=== PATIENT | female | born 1990 | race Hispanic/Latino ===

== ENCOUNTER 2022-07-26 23:33 | Emergency (ER) | payer BC ==
--- OUTSIDE RECORDS SUMMARY | 2022-07-26 23:36 | XMS REPORT | Continuity of Care Document ---
:1990 Author Organization [facility] t Address [address] [place] [address] Care Team Providers Name Role Phone CRISTA YOUNG Primary Care Physician Unavailable RADIOLOGY Attending Clinician Unavailable Alek Anguiano DO Attending Clinician Pob1, Acute Care Clinic Attending Clinician Unavailable Crista Luna Attending Clinician CRISTA YOUNG Attending Clinician Unavailable Care, Provider 14 Adult & Pedi Urgent Attending Clinician Un available Stephany Walker MD Attending Clinician PERNELL FLOWERS Attending Clinician Unavailable Pernell Queen Attending Clinician Doctor Unassigned, [place] Attending Clinician Unavailable Kelly Dobbins NP Attending Clinician CRISTA YOUNG Admitting Clinician Unavailable PERNELL FLOWERS Admitting Clinician Unavailable Payers Payer Name Policy Type Policy Number Effective Date Expiration Date S [facility] - [id number] 2020 OUT OF STATE 00:00:00 COVID19 HRSA [id number] 2019 UNINSURED 00:00:00 Problems Condition Condition Condition Status Onset Resolution Last Treating Co mments Source Name Details Category Date Date Treatment Clinician Date No known No known Disease Unive rs active active ity of problems problems [facility] Allergies, Adverse Reactions, Alerts Allergy Allergy Status Severity Reaction(s) Onset Inactive Treating Comm ents Source Name Type Date Date Clinician NO KNOWN Drug Active Univers ALLERGIE Class ity of S [facility] Social History Social Habit Start Date Stop Date Quantity Comments Source Sex Assigned At [birth year] [facility] 00:00:00 00:00:00 Medical Branch Smoking Status Start Date Stop Date Source Unknown if ever smoked [facility] Medications Ordered Filled Start Stop Current Ordering Indication Dosage Frequency Signature Comments Components Source Medication Medication Date Date Medication? Clinician (SIG) Name Name ozzie 2019-2019- No [id number] 5mL Take 5 mL Univers mine-pseudo 11-04 by mouth 4 i ty of ephedrine-D 00:00: 04:59 (four) Berry as M (BROMFED 00 :00 times Medical DM) 2-30-10 daily as Bran ch mg/5 mL needed for syrup Cold symptoms or Cough for up to 10 days. bromphenira 2019-2019- No [id number] 5mL Take 5 mL Univers mine-pseudo 11-04 by mouth 4 i ty of ephedrine-D 00:00: 04:59 (four) Berry as M (BROMFED 00 :00 times Medical DM) 2-30-10 daily as Bran ch mg/5 mL needed for syrup Cold symptoms or Cough for up to 10 days. bromphenira 2019-2019- No [id number] 5mL Take 5 mL Univers mine-pseudo 11-0404 by mouth 4 i ty of ephedrine-D 00:00: 04:59 (four) Berry as M (BROMFED 00 :00 times Medical DM) 2-30-10 daily as Bran ch mg/5 mL needed for syrup Cold symptoms or Cough for up to 10 days. bromphenira 2019-2019- No [id number] 5mL Take 5 mL Univers mine-pseudo 11-0404 by mouth 4 i ty of ephedrine-D 00:00: 04:59 (four) Berry as M (BROMFED 00 :00 times Medical DM) 2-30-10 daily as Bran ch mg/5 mL needed for syrup Cold symptoms or Cough for up to 10 days. ibuprofen 2019- No 800mg 800 mg, Uni vers (IBU) 11-02 Oral, ity of tablet 800 22:00: 21:00 ONCE, 1 [place] as mg 00 :00 dose, [facility] 11/03/19 at Branch 1700, CONNIE methocarbam 2019-0 2019- No 1500mg 1,500 mg, Univers ol 03-25 Oral, ONCE ity of (ROBAXIN) 22:00: 21:06 NOW, 1 [place] tablet 00 :00 dose, Mon Medical 1,500 mg 03/25/19 at [facility] h 1700, Routine ketorolac 2018- 2019- No 60mg 60 mg, Unive rs (TORADOL) 03-25 Intramuscu ity of injection 22:00: 21:06 lar, ONCE, [place] 60 mg 00 :00 1 dose, Medical Mon Branch 03/25/19 at 1700, CONNIE
Fa culty member approving Restricted medication : KELLY DOBBINS traMADOL 2018-0 Yes 50mg Take 1 Univers (ULTRAM) 50 7-22 tablet by ity of mg tablet 00:00: mouth [place] 00 every 6 Medical (six) Branch hours as needed for Pain (scale 4-6). traMADOL 2018-0 Yes 50mg Take 1 Univers (ULTRAM) 50 7-22 tablet by ity of mg tablet 00:00: mouth [place] 00 every 6 Medical (six) Branch hours as needed for Pain (scale 4-6). traMADOL 2018-0 Yes 50mg Take 1 Univers (ULTRAM) 50 7-22 tablet by ity of mg tablet 00:00: mouth [place] 00 every 6 Medical (six) Branch hours as needed for Pain (scale 4-6). traMADOL 2018-0 Yes 50mg Take 1 Univers (ULTRAM) 50 7-22 tablet by ity of mg tablet 00:00: mouth [place] 00 every 6 Medical (six) Branch hours as needed for Pain (scale 4-6). traMADOL 2018-0 Yes 50mg Take 1 Univers (ULTRAM) 50 7-22 tablet by ity of mg tablet 00:00: mouth [place] 00 every 6 Medical (six) Branch hours as needed for Pain (scale 4-6). traMADOL 2018-0 Yes 50mg Take 1 Univers (ULTRAM) 50 7-22 tablet by ity of mg tablet 00:00: mouth [place] 00 every 6 Medical (six) Branch hours as needed for Pain (scale 4-6). traMADOL 2018-0 Yes 50mg Take 1 Univers (ULTRAM) 50 7-22 tablet by ity of mg tablet 00:00: mouth [place] 00 every 6 Medical (six) Branch hours as needed for Pain (scale 4-6). traMADOL 2018-0 Yes 50mg Take 1 Univers (ULTRAM) 50 7-22 tablet by ity of mg tablet 00:00: mouth [place] 00 every 6 Medical (six) Branch hours as needed for Pain (scale 4-6). traMADOL 2018-0 Yes 50mg Take 1 Univers (ULTRAM) 50 7-22 tablet by ity of mg tablet 00:00: mouth [place] 00 every 6 Medical (six) Branch hours as needed for Pain (scale 4-6). traMADOL 2018-0 Yes 50mg Take 1 Univers (ULTRAM) 50 7-22 tablet by ity of mg tablet 00:00: mouth [place] 00 every 6 Medical (six) Branch hours as needed for Pain (scale 4-6). ondansetron 2018-0 Yes 4mg Take 1 Univ ers 4 mg 5-13 tablet by ity of disintegrat 00:00: mouth [place] ing tablet 00 every 4 Medica l (four) Branch hours as needed for Nausea and Vomiting (N/V). famotidine 2018-0 Yes 20mg Take 1 Unive rs 20 mg 5-13 tablet by ity of tablet 00:00: mouth 2 [place] 00 (two) Medical times Branch daily. sucralfate 2018-0 Yes 1g Take 1 Unive rs 1 gram 5-13 tablet by ity of tablet 00:00: mouth [place] 00 before Medical meals and Branch at bedtime. ondansetron 2018-0 Yes 4mg Take 1 Univ ers 4 mg 5-13 tablet by ity of disintegrat 00:00: mouth [place] ing tablet 00 every 4 Medica l (four) Branch hours as needed for Nausea and Vomiting (N/V). famotidine 2018-0 Yes 20mg Take 1 Unive rs 20 mg 5-13 tablet by ity of tablet 00:00: mouth 2 [place] 00 (two) Medical times Branch daily. sucralfate 2018-0 Yes 1g Take 1 Unive rs 1 gram 5-13 tablet by ity of tablet 00:00: mouth [place] 00 before Medical meals and Branch at bedtime. ondansetron 2018-0 Yes 4mg Take 1 Univ ers 4 mg 5-13 tablet by ity of disintegrat 00:00: mouth [place] ing tablet 00 every 4 Medica l (four) Branch hours as needed for Nausea and Vomiting (N/V). famotidine 2018-0 Yes 20mg Take 1 Unive rs 20 mg 5-13 tablet by ity of tablet 00:00: mouth 2 [place] 00 (two) Medical times Branch daily. sucralfate 2018-0 Yes 1g Take 1 Unive rs 1 gram 5-13 tablet by ity of tablet 00:00: mouth [place] 00 before Medical meals and Branch at bedtime. ondansetron 2018-0 Yes 4mg Take 1 Univ ers 4 mg 5-13 tablet by ity of disintegrat 00:00: mouth [place] ing tablet 00 every 4 Medica l (four) Branch hours as needed for Nausea and Vomiting (N/V). famotidine 2018-0 Yes 20mg Take 1 Unive rs 20 mg 5-13 tablet by ity of tablet 00:00: mouth 2 [place] 00 (two) Medical times Branch daily. sucralfate 2018-0 Yes 1g Take 1 Unive rs 1 gram 5-13 tablet by ity of tablet 00:00: mouth [place] 00 before Medical meals and Branch at bedtime. ondansetron 2018-0 Yes 4mg Take 1 Univ ers 4 mg 5-13 tablet by ity of disintegrat 00:00: mouth [place] ing tablet 00 every 4 Medica l (four) Branch hours as needed for Nausea and Vomiting (N/V). famotidine 2018-0 Yes 20mg Take 1 Unive rs 20 mg 5-13 tablet by ity of tablet 00:00: mouth 2 [place] 00 (two) Medical times Branch daily. sucralfate 2018-0 Yes 1g Take 1 Unive rs 1 gram 5-13 tablet by ity of tablet 00:00: mouth [place] 00 before Medical meals and Branch at bedtime. ondansetron 2018-0 Yes 4mg Take 1 Univ ers 4 mg 5-13 tablet by ity of disintegrat 00:00: mouth [place] ing tablet 00 every 4 Medica l (four) Branch hours as needed for Nausea and Vomiting (N/V). famotidine 2018-0 Yes 20mg Take 1 Unive rs 20 mg 5-13 tablet by ity of tablet 00:00: mouth 2 [place] 00 (two) Medical times Branch daily. sucralfate 2018-0 Yes 1g Take 1 Unive rs 1 gram 5-13 tablet by ity of tablet 00:00: mouth [place] 00 before Medical meals and Branch at bedtime. ondansetron 2018-0 Yes 4mg Take 1 Univ ers 4 mg 5-13 tablet by ity of disintegrat 00:00: mouth [place] ing tablet 00 every 4 Medica l (four) Branch hours as needed for Nausea and Vomiting (N/V). famotidine 2018-0 Yes 20mg Take 1 Unive rs 20 mg 5-13 tablet by ity of tablet 00:00: mouth 2 [place] 00 (two) Medical times Branch daily. ondansetron 2018-0 Yes 4mg Take 1 Univ ers 4 mg 5-13 tablet by ity of disintegrat 00:00: mouth [place] ing tablet 00 every 4 Medica l (four) Branch hours as needed for Nausea and Vomiting (N/V). sucralfate 2018-0 Yes 1g Take 1 Unive rs 1 gram 5-13 tablet by ity of tablet 00:00: mouth [place] 00 before Medical meals and Branch at bedtime. famotidine 2018-0 Yes 20mg Take 1 Unive rs 20 mg 5-13 tablet by ity of tablet 00:00: mouth 2 [place] 00 (two) Medical times Branch daily. sucralfate 2018-0 Yes 1g Take 1 Unive rs 1 gram 5-13 tablet by ity of tablet 00:00: mouth [place] 00 before Medical meals and Branch at bedtime. ondansetron 2018-0 Yes 4mg Take 1 Univ ers 4 mg 5-13 tablet by ity of disintegrat 00:00: mouth [place] ing tablet 00 every 4 Medica l (four) Branch hours as needed for Nausea and Vomiting (N/V). famotidine 2018-0 Yes 20mg Take 1 Unive rs 20 mg 5-13 tablet by ity of tablet 00:00: mouth 2 [place] 00 (two) Medical times Branch daily. sucralfate 2018-0 Yes 1g Take 1 Unive rs 1 gram 5-13 tablet by ity of tablet 00:00: mouth [place] 00 before Medical meals and Branch at bedtime. ondansetron 2018-0 Yes 4mg Take 1 Univ ers 4 mg 5-13 tablet by ity of disintegrat 00:00: mouth [place] ing tablet 00 every 4 Medica l (four) Branch hours as needed for Nausea and Vomiting (N/V). famotidine 2018-0 Yes 20mg Take 1 Unive rs 20 mg 5-13 tablet by ity of tablet 00:00: mouth 2 [place] 00 (two) Medical times Branch daily. sucralfate 2018-0 Yes 1g Take 1 Unive rs 1 gram 5-13 tablet by ity of tablet 00:00: mouth [place] 00 before Medical meals and Branch at bedtime. proMETHazin 2016-08 Yes 25mg Take 1 Univ ers e 25 mg 0-30 tablet by ity of tablet 00:00: mouth [place] 00 every 6 Medical (six) Branch hours as needed for Nausea and Vomiting (N/V). proMETHazin 2016-08 Yes 25mg Take 1 Univ ers e 25 mg 0-30 tablet by ity of tablet 00:00: mouth [place] 00 every 6 Medical (six) Branch hours as needed for Nausea and Vomiting (N/V). proMETHazin 2016-08 Yes 25mg Take 1 Univ ers e 25 mg 0-30 tablet by ity of tablet 00:00: mouth [place] 00 every 6 Medical (six) Branch hours as needed for Nausea and Vomiting (N/V). proMETHazin 2016-08 Yes 25mg Take 1 Univ ers e 25 mg 0-30 tablet by ity of tablet 00:00: mouth [place] 00 every 6 Medical (six) Branch hours as needed for Nausea and Vomiting (N/V). proMETHazin 2016-08 Yes 25mg Take 1 Univ ers e 25 mg 0-30 tablet by ity of tablet 00:00: mouth [place] 00 every 6 Medical (six) Branch hours as needed for Nausea and Vomiting (N/V). proMETHazin 2016-08 Yes 25mg Take 1 Univ ers e 25 mg 0-30 tablet by ity of tablet 00:00: mouth [place] 00 every 6 Medical (six) Branch hours as needed for Nausea and Vomiting (N/V). proMETHazin 2016-08 Yes 25mg Take 1 Univ ers e 25 mg 0-30 tablet by ity of tablet 00:00: mouth [place] 00 every 6 Medical (six) Branch hours as needed for Nausea and Vomiting (N/V). proMETHazin 2016- Yes 25mg Take 1 Univ ers e 25 mg 0-30 tablet by ity of tablet 00:00: mouth [place] 00 every 6 Medical (six) Branch hours as needed for Nausea and Vomiting (N/V). proMETHazin 2016- Yes 25mg Take 1 Univ ers e 25 mg 0-30 tablet by ity of tablet 00:00: mouth [place] 00 every 6 Medical (six) Branch hours as needed for Nausea and Vomiting (N/V). proMETHazin 2017-1 Yes 25mg Take 1 Univ ers e 25 mg 0-30 tablet by ity of tablet 00:00: mouth [place] 00 every 6 Medical (six) Branch hours as needed for Nausea and Vomiting (N/V). Vital Signs Vital Name Observation Time Observation Value Comments Source Heart rate 2019-11-05 17:17:00 86 /min Universi ty [facility] Body temperature 2019-11-05 17:17:00 36.67 Guillermina Univ ersity [facility] Respiratory rate 2019-11-05 17:17:00 20 /min Univ ersity [facility] Body weight 2019-11-05 17:17:00 92.987 kg Universi ty [facility] BMI 2019-11-05 17:17:00 35.19 kg/m2 Universi ty [facility] Oxygen saturation in 2019-11-05 17:17:00 99 /min University of Arterial blood by [facility] Pulse oximetry Branch Systolic blood 2019-11-05 17:17:00 139 mm[Hg] Univer sity of pressure [facility] Diastolic blood 2019-11-05 17:17:00 83 mm[Hg] Unive rsity of pressure [facility] Systolic blood 2019-11-03 21:00:00 108 mm[Hg] Univer sity of pressure [facility] Diastolic blood 2019-11-03 21:00:00 79 mm[Hg] Unive rsity of [facility] Heart rate 2019-11-03 21:00:00 96 /min Universi ty [facility] Respiratory rate 2019-11-03 21:00:00 22 /min Univ ersity [facility] Oxygen saturation in 2019-11-03 21:00:00 98 /min University of Arterial blood by [facility] Pulse oximetry Branch Body temperature 2019-11-03 20:32:00 37.11 Guillermina Univ ersity [facility] Body weight 2019-11-03 20:32:00 92.987 kg Universi ty [facility] BMI 2019-11-03 20:32:00 35.19 kg/m2 Universi ty [facility] Systolic blood 2019-03-25 22:00:00 102 mm[Hg] Univer sity of [facility] Diastolic blood 2019-03-25 22:00:00 74 mm[Hg] Unive rsity of pressure [facility] Heart rate 2019-03-25 22:00:00 72 /min [facility] Respiratory rate 2019-03-25 22:00:00 18 /min [facility] Oxygen saturation in 2019-03-25 22:00:00 98 /min [facility] Arterial blood by [facility] Pulse oximetry Branch Body temperature 2019-03-25 19:16:00 36.83 Guillermina [facility] Body height 2019-03-25 19:16:00 162.6 cm [facility] Body weight 2019-03-25 19:16:00 104.327 kg [facility] BMI 2019-03-25 19:16:00 39.48 kg/m2 [facility] Procedures Procedure Date / Time Performing Clinician Source Performed US ABDOMEN COMPLETE 2019-11-05 18:37:05 Crista Young [facility] POCT FLU A AND B 2019-11-05 17:35:00 Hector [facility] (MOLECULAR) [facility] LAB ONLY CORONAVIRUS 2019-11-05 17:20:00 Crista Young [facility] COVID-19 PCR [facility] [place] XR CHEST 1 VW 2019-11-03 21:17:32 Pernell Flowers [facility] RAPID STREP SCREEN FOR 2019-11-03 21:00:00 [facility] [place] GROUP A [facility] POCT TEST 2019-11-03 20:44:00 Pernell Flowers [facility] NOTICE OF PRIVACY 2019-11-03 20:18:17 Doctor Unassigned, No Univ [facility] PRACTICES Name Medical Branch CONSENT/REFUSAL FOR 2019-11-03 20:17:40 [facility], [facility] Name Medical Branch XR KUB 2019-03-25 21:33:17 Kelly Dobbins [facility] XR CHEST 2 VW 2019-03-25 21:29:23 Kelly Dobbins [facility] URINALYSIS 2019-03-25 21:03:00 Kelly Dobbins [facility] POCT TEST 2019-03-25 21:00:00 [facility]obbins [facility]IVACY 2019-03-25 19:06:40 Doctor Unassigned, No Univ [facility] PRACTICES Name [facility] CONSENT/REFUSAL FOR 2019-03-25 19:06:29 Doctor Unassigned, [facility] Name [facility] Encounters Start End Encounter Admission Attending Care Care Encounter Source Date/Time Date/Time Type Type Clinicians Facility Department ID 2021-11-04 2021-11-04 Outpatient R RADIOLOGY [facility] [id number] Univers 00:00:00 00:00:00 ity [facility] 2020-11-03 2020-11-03 Patient Silvio [facility] [id number] Univers 00:00:00 00:00:00 Outreach Alek PRIMARY [id number] i ty of [facility] [id number] [place] [id number] [facility] [address] [place] 2019-11-05 2019-11-07 Office Pob1, Acute Care Clinic [facility] [id number]. [id number] Univers 12:04:17 11:39:25 Visit Crista Young [id number] ity song [place] [id number] [place] as Professio [phone] [facility] [address] [place] [address] 2019-11-05 2019-11-05 Outpatient R HECTOR [facility] [id number] Univers 13:16:38 23:59:00 CRISTA ity of [facility] 2019-11-05 2019-11-05 Hospital Hector [facility] [id number] Univers 13:16:00 23:59:00 Encounter Crista Papi [id number] ity song [id number] [place] [id number] [facility] [address] [place] 2019-11-03 2019-11-03 Telemedici Care, Provider 14 Adult & P samira Urgent [facility] [id number] Univers 14:58:07 19:12:59 ne Visit DeniseChiaraStephany R [facility] [id number]. 10 ity of [facility] [id number] [facility] AT [phone] Nm janina COE [address] [place] [address] 2019-11-03 2019-11-03 Emergency X LIONEL, [facility] ERT [id number] Univers 15:26:47 17:07:00 PERNELL ity of [facility] 2019-11-03 2019-11-03 [facility] [id number] Univers 15:26:47 17:07:00 Pernell [place] [id number] i ty of [place] 4.2.7.2.686 [facility] [id number] [address] 2019-11-03 2019-11-03 Orders Doctor ELVIN [id number] Univers 00:00:00 00:00:00 Only Unassigned, MARIANGEL [id number] ity of [place] 4.2.7.2.686 [place] as [id number] [address] 2019-03-25 2019-03-25 Emergency [facility] [id number] Univers 15:42:53 18:45:00 Kelly [place] [id number] ity of [place] [id number] [facility] [id number] [address] 2019-03-25 2019-03-25 Orders Doctor ELVIN [id number] Univers 00:00:00 00:00:00 Only Unassigned, MARIANGEL [id number] ity of [place] [facility] [id number] [place] as [id number] [address] Results Test Description Test Time Test Comments Results Result Comments Source LAB ONLY CORONAVIRUS COVID-19 PCR [facility] 2019-11-07 00:49:00 Test Item Value Reference Range Interpretation Comme nts Coronavirus COVID-19 (test code = Positive Not Detected A [id number]) KARI (test code = KARI) Not Detected: A negative result does not preclude COVID-19 infection and should not be used as the sole basis for treatment or other patient management decisions. Negative results must be combined with clinical observations, patient history, and epidemiological information. Presumptive Positive: Specimen will be sent to [facility] for confirmation testing. Inconclusive: Specimen will be sent to [facility] for additional testing. Invalid: Please collect a new specimen for repeat patient testing. Disclaimer:This test was developed and its performance characteristics determined by [facility]. It has not been cleared or approved by the US Food and Drug Administration (FDA). An Emergency Use Authorization (EUA) application is under preparation and FDA approval process. This test is used for clinical purposes. It should not be regarded as investigational or for research. This laboratory is certified under the Clinical Laboratory Improvement Amendments (CLIA) as qualified to perform high complexity clinical laboratory testing. Lab Interpretation (test code = Abnormal 06865-8) [facility] [id number] 18:40:54HISTORY: Right lower quadrant Abdominal pain. TECHNIQUE: Upper abdominal organs were evaluated in multiple planes withthe patient in multiple different positions, without and with colorimaging. FINDINGS: Liver is 17.1 cm, spleen is 13 x 5.3 cm, right kidney is 10.9 x5.4 x 5.1 cm and left kidney is 12.4 x 5.0 x 5.2 cm in size. No focallesions are detected in these organs. Cortex of both kidneys range [id number] mm and 17 mm. No hydronephrosis, free fluid in the upper abdomen oraortic aneurysm detected. Visualized portions of the pancreas appearnormal. Hepatic and portal venous system appear patent, with hepatopetalportal flow noted. Gallbladder is remote. Common hepatic duct is 4.1 mm. CONCLUSIONS:1. Upper normal size liver and borderline splenomegaly.2. S/P cholecystectomy. Note: If the patient's right lower quadrant abdominal pain persists andremains unexplained, CT study should be obtained, especially ifappendicitis is suspected clinically. [facility], Radiant Results Inft User - 11/05/2019 1:41 PM CDTHISTORY: Right lower quadrant Abdominal pain.TECHNIQUE: Upper abdominal organs were evaluated in multiple planes withthe patient in multiple different positions, without and with colorimaging.FINDINGS: Liver is 17.1 cm, spleen is 13 x 5.3 cm, right kidney is 10.9 x5.4 x 5.1 cm and left kidney is 12.4 x 5.0 x 5.2 cm in size. No focallesions are detected in these organs. Cortex of both kidneys range mm and 17 mm. No hydronephrosis, free fluid in the upper abdomen oraortic aneurysm detected. Visualized portions of the pancreas appearnormal. Hepatic and portal venous system appear patent, with hepatopetalportal flow noted.Gallbladder is remote. Common hepatic duct is 4.1 mm.CONCLUSIONS:1. Upper normal size liver and borderline splenomegaly.2. S/P cholecystectomy.Note: If the patient's right lower quadrant abdominal pain persists andremains unexplained, CT study should be obtained, especially ifappendicitis is suspected clinically.[facility] FLU A AND B (MOLECULAR) 2019-11-05 17:35:00 Test Item Value Reference Range Interpretation Comments POCT INFLUENZA A (test code = Negative Negative - Negative 3840) POCT INFLUENZA B (test code = Negative Negative - Negative 3841) Lab Interpretation (test code = Normal 38372-0) [facility] FLU A AND B (MOLECULAR)2019-11-05 17:35:00 Test Item Value Reference Range Interpretation Comments POCT INFLUENZA A (test code = Negative Negative - Negative 3840) POCT INFLUENZA B (test code = Negative Negative - Negative 3841) Lab Interpretation (test code = Normal 16436-7) [facility] FLU A AND B (MOLECULAR)2019-11-05 17:35:00 Test Item Value Reference Range Interpretation Comments POCT INFLUENZA A (test code = Negative Negative - Negative 3840) POCT INFLUENZA B (test code = Negative Negative - Negative 3841) Lab Interpretation (test code = Normal 22824-4) [facility] STREP SCREEN FOR GROUP [id number] 21:33:00 Test Item Value Reference Range Interpretation Comments Streptococcus pyogenes (group A) Negative Negative antigen (test code = 42147-7) Lab Interpretation (test code = Normal 40535-3) [facility] 1 [id number] 21:31:34 No acute intrathoracic abnormality. Preliminary Report Dictated by Resident: Ridge Viera MD., have reviewed this study and agree with the abovereport.PROCEDURE: XR CHEST 1 VW CLINICAL INDICATION: cough COMPARISON: 03/25/2019. FINDINGS: The lungs are clear. No pleural effusion or pneumothorax is seen. The heartis normal in size. No acute bony abnormality. [facility], Radiant Results Inft User - 11/03/2019 4:32 PM CDTPROCEDURE: XR CHEST 1 VWCLINICAL INDICATION: cough COMPARISON: 03/25/2019.FINDINGS:The lungs are clear. No pleural effusion or pneumothorax is seen. The heartis normal in size.No acute bony abnormality.IMPRESSIONNo acute intrathoracic abnormality.Preliminary Report Dictated by Resident: Ridge Lal MD., have reviewed this study and agree with the abovereport.[facility] [id number] 20:44:00 Test Item Value Reference Range Interpretation Comments POCT PREG (test code = 1605) negative On board controls acceptable with present C Line (test code = 3574) POCT PREG LOT # (test code = 3575) [id number] POCT PREG TEST DATE (test 04/13/2021 code = 3576) Lab Interpretation (test code = Normal 84451-5) [facility] [id number] 21:44:02FINDINGS/IMPRESSION: The bowel gas pattern is non-obstructive. Large amount of stool is seen inthe co ana. No abnormal calcifications or radiopaque stones are identified. No acute bony abnormalities arenoted. Cholecystectomy surgical clips are present in the right upper quadrant. Maria Del Rosario Browne MD., have reviewed this study and agree with theabove report.* * * * * * * * ORIGINAL REPORT * * * * * * * *EXAM: XR KUB HISTORY: 28 years-old Female presenting with flank pain COMPARISON: CT abdomen pelvis on 06/12/2017 [facility], Radiant Results Inft User - 03/25/2019 4:46 PM CDT* * * * * * * * ORIGINAL REPORT * * * * * * * *EXAM: XR KUBHISTORY: 28 years-old Female presenting with flank pain COMPARISON: CT abdomen pelvis on 06/12/2017IMPRESSIONFINDINGS/IMPRESSION:The bowel gas pattern is non-obstructive. Large amount of stool is seen inthe colon.No abnormal calcifications or radiopaque stones are identified. No acute bony abnormalities are noted.Cholecystectomy surgical clips are present in the right upper quadrant.Mackenzie Browne MD., have reviewed this study and agree with theabove report.[facility] CHEST 2 [id number] 21:30:31No acute cardiopulmonary disease. * * * * * * * * ORIGINAL REPORT * * * * * * * *CHEST 2 VIEWS: HISTORY:[Left Back pain TECHNIQUE::?PA and lateral views of the chest are obtained. FINDINGS: The lungs are clear. The heart size and mediastinal silhouetteare normal. No pleural effusion or pneumothorax isseen. Mild dextroscoliosis of the thoracic spine is seen. [facility], Radiant Results Inft User - 03/25/2019 4:32 PM CDT* * * * * * * * ORIGINAL REPORT * * * * * * * *CHEST 2 VIEWS:HISTORY:[Left Back painTECHNIQUE:: PA and lateral views of the chest are obtained. FINDINGS: The lungs are clear. The heart size and mediastinal silhouetteare normal. No pleural effusion or pneumothorax is seen.Mild dextroscoliosis of the thoracic spine is seen.IMPRESSIONNo acute cardiopulmonary disease.[facility]2019-08-12 21:29:00 Test Item Value Reference Range Interpretation Comments APPEARANCE (test code = Clear Clear [id number]) COLOR (test code = Yellow Yellow 7762817347) PH (test code = 4.8-8.0 6993947251) SP GRAVITY (test code = 1.003-1.030 9434275239) GLU U QUAL (test code = Negative Negative 9629100563) BLOOD (test code = Negative Negative 5199133852) KETONES (test code = Negative Negative 0579376693) PROTEIN (test code = Negative Negative 2887-8) UROBILIN (test code = 0.2 mg/dL See_Comment [Auto mated message] [id number]) The system Mogl[employer] generated this result transmit vish reference range : 0-1.0 mg/dL. Th e reference range was not used to interpret this result as normal/abnormal . BILIRUBIN (test code = Negative Negative 1608542957) NITRITE (test code = Negative Negative 8745646442) LEUK SUNDAR (test code = Negative Negative 7752504476) RBC/HPF (test code = See_Comment [Autom ated message] [id number]) The system [employer] generated this result transmit vish reference range : 0 - 3 HPF. The refe rence range was not u sed to interpret th is result as normal/abnormal . WBC/HPF (test code = See_Comment [Autom ated message] [id number]) The system [employer] generated this result transmit vish reference range : 0 - 5 HPF. The refe rence range was not u sed to interpret th is result as normal/abnormal . BACTERIA (test code = Negative Negative 7872024346) Lab Interpretation (test Normal code = 40840-6) [facility] [id number] 21:00:00 Test Item Value Reference Range Interpretation Comments POCT PREG (test code = 1605) Negative On board controls acceptable with Present C Line (test code = 3574) POCT PREG LOT # (test code = 3575) [id number] POCT PREG TEST DATE (test 08/13/2020 code = 3576) Lab Interpretation (test code = Normal 57896-2) [facility]
[2022-07-27] MEDS ORDERED: LIDOCAINE 2% MPF 5 ML VIAL ONE (00:17)
--- NOTE | 2022-07-27 00:52 | ER ---
Nurse's Notes [facility] Name: Geena Landin Age: 31 yrs Sex: Female : 1990 Arrival Date: 07/26/2022 Time: 23:44 Bed 11 Private MD: Diagnosis: Cutaneous abscess of chest wall Presentation: 07/27 00:03 Chief complaint: Patient states: "I got bit by a mosquito a few days ago and now it is vc1 bigger and looks like it could be a boil.". Coronavirus screen: Vaccine status: Patient reports being unvaccinated. At this time, the client does not indicate any symptoms associated with coronavirus-19. Ebola Screen: No symptoms or risks identified at this time. Risk Assessment: Do you want to hurt yourself or someone else? Patient reports no desire to harm self or others. Onset of symptoms was July 25, 2022. 00:03 Method Of Arrival: Ambulatory vc1 00:03 Acuity: KWESI 4 vc1 00:05 Initial Sepsis Screen: Does the patient meet any 2 criteria? No. Patient's initial vc1 sepsis screen is negative. Does the patient have a suspected source of infection? Yes: Skin breakdown/wound. Triage Assessment: 00:00 General: Appears in no apparent distress. Behavior is calm, cooperative, appropriate vc1 for age. Pain: Complains of pain in chest. Neuro: No deficits noted. Cardiovascular: No deficits noted. Respiratory: No deficits noted. GI: No deficits noted. : No deficits noted. Derm: Wound noted chest. 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 - Social history:: Smoking status: Patient denies any tobacco usage or history of. - Family history:: not pertinent. - Hospitalizations: : No recent hospitalization is reported. Screenin:25 Abuse screen: Denies threats or abuse. Nutritional screening: No deficits noted. bb Tuberculosis screening: No symptoms or risk factors identified. Fall Risk No fall in past 12 months (0 pts). No secondary diagnosis (0 pts). No IV (0 pts). Ambulatory Aid- None/Bed Rest/Nurse Assist (0 pts). Gait- Normal/Bed Rest/Wheelchair (0 pts) Mental Status- Oriented to own ability (0 pts). Total Henderson Fall Scale indicates No Risk (0-24 pts). Assessment: 00:25 General: Appears in no apparent distress. uncomfortable. Pain: Complains of pain in bb chest. Neuro: Level of Consciousness is awake, alert, obeys commands, Oriented to person, place, time, situation. Cardiovascular: Capillary refill < 3 seconds Patient's skin is warm and dry. Respiratory: Respiratory effort is even, unlabored, Respiratory pattern is regular. GI: No signs and/or symptoms were reported involving the gastrointestinal system. Derm: Abscess located on left side of upper chest is golf ball sized, is red, is raised. Musculoskeletal: Circulation, motion, and sensation intact. 01:08 Reassessment: No changes from previously documented assessment. Patient and/or family vc1 updated on plan of care and expected duration. Pain level reassessed. Patient is alert, oriented x 3, equal unlabored respirations, skin warm/dry/pink. Vital Signs: 00:03 Weight 99.79 kg; Height 5 ft. 4 in. (162.56 cm); vc1 00:05 BP 125 / 88; Pulse 76; Resp 14; Temp 98.4; Pulse Ox 100% on R/A; vc1 00:03 Body Mass Index 37.76 (99.79 kg, 162.56 cm) vc1 ED Course: 07/26 23:44 Patient arrived in ED. bp1 23:45 Aram Becker MD is Attending Physician. rn 07/27 00:04 Triage completed. vc1 00:05 Arm band placed on right wrist. vc1 00:25 Patient has correct armband on for positive identification. Call light in reach. Side bb rails up X 1. Adult w/ patient. 00:25 Assist provider with I \\T\\ D: of an abscess on left upper chest Set up I\\T\\D tray. bb Performed by Aram Becker MD Wound packed. iodoform gauze, Dressing with Neosporin and 4X4s, tape Patient tolerated well. 00:51 Adolfo Ramirez MD is Referral Physician. rn 01:06 Norma Cornejo RN is Primary Nurse. vc1 01:08 Patient did not have IV access during this emergency room visit. vc1 Administered Medications: 00:48 Drug: Lidocaine (2 %) 1 vials {Note: by Dr Becker to affected area.} Volume: 5 ml; bb Route: Infiltration; 00:57 Drug: Clindamycin 300 mg Route: PO; vc1 01:08 Follow up: Response: Medication administered at discharge. vc1 00:57 Drug: [place] (HYDROcodone-acetaminophen) 10 mg-325 mg 1 tabs Route: PO; vc1 01:08 Follow up: Response: Medication administered at discharge. vc1 Medication: 00:25 VIS not applicable for this client. bb Outcome: 00:51 Discharge ordered by . rn 01:07 Discharged to home ambulatory, with significant other. vc1 01:07 Condition: good 01:07 Discharge instructions given to patient, Instructed on discharge instructions, follow up and referral plans. medication usage, Demonstrated understanding of instructions, follow-up care, medications, Prescriptions given X 2. 01:08 Patient left the ED. vc1 Signatures: Ct Burks RN RN bb Aram Becker MD MD rn [place], Brittany [facility] Norma Cornejo, RAUL RN vc1
--- NOTE | 2022-07-27 00:52 | EDPHYS ---
Physician Documentation [facility] Name: Geena Landin Age: 31 yrs Sex: Female : 1990 Arrival Date: 07/26/2022 Time: 23:44 Bed 11 Private MD: ED Physician Aram Becker HPI: 07/27 00:09 This 31 yrs old Female presents to ER via Ambulatory with complaints of Chest rn Lump. 00:09 The patient presents with an abscess of the chest. Description: The affected area is rn moderate sized, erythematous, fluctuant. 00:09 Onset: The symptoms/episode began/occurred 3 day(s) ago. Possible cause(s): unknown. rn Associated signs and symptoms: Pertinent positives: erythema, swelling. Modifying factors: the symptoms are alleviated by nothing, the symptoms are aggravated by touching. Severity of symptoms: At their worst the symptoms were moderate, in the emergency department the symptoms are unchanged. The patient has not experienced similar symptoms in the past. 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 - Social history:: Smoking status: Patient denies any tobacco usage or history of. - Family history:: not pertinent. - Hospitalizations: : No recent hospitalization is reported. ROS: 00:09 Constitutional: Negative for fever, chills, and weight loss, Skin: + swollen area on rn left chest wall Exam: 00:09 Constitutional: This is a well developed, well nourished patient who is awake, alert, rn and in no acute distress. Chest/axilla: 3 cm area of erythema and fluctuance left upper/outer chest wall, no drainage, mild surrounding erythema. Vital Signs: 00:03 Weight 99.79 kg; Height 5 ft. 4 in. (162.56 cm); vc1 00:05 BP 125 / 88; Pulse 76; Resp 14; Temp 98.4; Pulse Ox 100% on R/A; vc1 00:03 Body Mass Index 37.76 (99.79 kg, 162.56 cm) vc1 Procedures: 00:50 I \T\ D: Incision and drainage was performed for an abscess of the left chest Prepped rn with Betadine, Anesthetized with 5 ml's 1% Lidocaine. Incised with #11 blade. Drained moderate amount purulent fluid. serosanguinous fluid. Packed with sterile gauze, Dressing: sterile 4x4 gauze, the patient tolerated the procedure well. MDM: 07/26 23:45 Patient medically screened. rn 07/27 00:50 Differential diagnosis: abscess. Data reviewed: vital signs, nurses notes, and as a rn result, I will discharge patient. Counseling: I had a detailed discussion with the patient and/or guardian regarding: the historical points, exam findings, and any diagnostic results supporting the discharge/admit diagnosis, the need for outpatient follow up, to return to the emergency department if symptoms worsen or persist or if there are any questions or concerns that arise at home. Response to treatment: the patient's symptoms have markedly improved after treatment, and as a result, I will discharge patient. Special discussion: I discussed with the patient/guardian in detail that at this point there is no indication for admission to the hospital. It is understood, however, that if the symptoms persist or worsen the patient needs to return immediately for re-evaluation. 07/27 00:07 Order name: Incision \T\ Drainage Setup; Complete Time: 00:21 rn Administered Medications: 00:48 Drug: Lidocaine (2 %) 1 vials {Note: by Dr Becker to affected area.} Volume: 5 ml; bb Route: Infiltration; 00:57 Drug: Clindamycin 300 mg Route: PO; vc1 01:08 Follow up: Response: Medication administered at discharge. vc1 00:57 Drug: [place] (HYDROcodone-acetaminophen) 10 mg-325 mg 1 tabs Route: PO; vc1 01:08 Follow up: Response: Medication administered at discharge. 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
[2022-07-27] MEDS ORDERED: HYDROCODONE/APAP 5/325 MG TAB ONE (00:56)
[2022-07-27 01:14] VITALS: BP 125/88; TEMP 98.4; O2SAT 100
== END 2022-07-27 01:08 | disposition home or self-care (01) ==
LOC: ER 23:33
PROC: 0H95XZZ Drainage of Chest Skin, External Approach (ICD-10-PCS; principal; 2022-07-27)
DX: L02.213 Cutaneous abscess of chest wall (principal)
CPT/HCPCS: 99283; 10060; J2001

== ENCOUNTER 2022-07-31 06:24 | Emergency (ER) | payer BC ==
--- OUTSIDE RECORDS SUMMARY | 2022-07-31 06:28 | XMS REPORT | Continuity of Care Document ---
:1990 Author Organization [facility] t Address [address] [place] [address] Care Team Providers Name Role Phone CRISTA [...] Unavailable Pernell Queen Attending Clinician Doctor Unassigned, [place] Attending Clinician Unavailable Kelly Dobbins NP Attending Clinician CRISTA YOUNG Admitting Clinician Unavailable PERNELL FLOWERS Admitting Clinician Unavailable Payers Payer Name Policy Type Policy Number Effective Date Expiration Date S aan [facility] [id number] 2020 OUT OF STATE 00:00:00 COVID19 HRSA [id number] 2019 UNINSURED 00:00:00 Problems Condition Condition Condition Status Onset Resolution Last Treating Co mments Source Name Details Category Date Date Treatment Clinician Date No known No known Disease Unive rs active active ity of problems problems [facility] Allergies, Adverse Reactions, Alerts Allergy Allergy Status Severity Reaction(s) Onset Inactive Treating Comm ents Source Name Type Date Date Clinician NO KNOWN Drug Active Univers ALLERGIE Class ity of S [facility] Social History Social Habit Start Date Stop Date Quantity Comments Source Sex Assigned At [birth year] [facility] 00:00:00 00:00:00 [facility] Smoking Status Start Date Stop Date Source Unknown if ever smoked [facility] Medications Ordered Filled Start Stop Current Ordering Indication Dosage Frequency Signature Comments Components Source Medication Medication Date Date Medication? Clinician (SIG) Name Name иванphenira 2019-2019- No [id number] 5mL Take 5 mL Univers mine-pseudo 11-04-04 by mouth 4 i ty of ephedrine-D 00:00: 04:59 (four) Berry as M (BROMFED 00 :00 times Medical DM) 2-30-10 daily as Bran ch mg/5 mL needed for syrup Cold symptoms or Cough for up to 10 days. bromphenira 2019-0 2019- No [id number] 5mL Take 5 mL Univers mine-pseudo 11-04-04 by mouth 4 i ty of ephedrine-D 00:00: 04:59 (four) Berry as M (BROMFED 00 :00 times Medical DM) 2-30-10 daily as Bran ch mg/5 mL needed for syrup Cold symptoms or Cough for up to 10 days. bromphenira 2019-0 2019- No [id number] 5mL Take 5 mL Univers mine-pseudo 11-04-04 by mouth 4 i ty of ephedrine-D 00:00: 04:59 (four) Berry as M (BROMFED 00 :00 times Medical DM) 2-30-10 daily as Bran ch mg/5 mL needed for syrup Cold symptoms or Cough for up to 10 days. bromphenira 2019-2019- No [id number] 5mL Take 5 mL Univers mine-pseudo 11-04-04 by mouth 4 i ty of ephedrine-D 00:00: 04:59 (four) Berry as M (BROMFED 00 :00 times Medical DM) 2-30-10 daily as Bran ch mg/5 mL needed for syrup Cold symptoms or Cough for up to 10 days. ibuprofen 2019-2019- No 800mg 800 mg, Uni vers (IBU) 11-0222 Oral, ity of tablet 800 22:00: 21:00 ONCE, 1 [place] as mg 00 :00 dose, [facility] 11/03/19 at Branch 1700, CONNIE methocarbam 2018- 2019- No 1500mg 1,500 mg, Univers ol 03-25 Oral, ONCE ity of (ROBAXIN) 22:00: 21:06 NOW, 1 [place] tablet 00 :00 dose, [facility] 1,500 mg 03/25/19 at [facility] h 1700, Routine ketorolac 2019- No 60mg 60 mg, Unive rs [...] tablet by ity of tablet 00:00: mouth 00 every 6 Medical (six) Branch hours as needed for Nausea and Vomiting (N/V). Vital Signs Vital Name Observation Time Observation Value Comments Source Heart rate 2019-11-05 17:17:00 86 /min Universi ty of [facility] Body temperature 2019-11-05 17:17:00 36.67 Guillermina Univ ersity [facility] Respiratory rate 2019-11-05 17:17:00 20 /min Univ ersity of [facility] Body weight 2019-11-05 17:17:00 92.987 kg Universi ty [facility] BMI 2019-11-05 17:17:00 35.19 kg/m2 Universi ty [facility] Oxygen saturation in 2019-11-05 17:17:00 99 /min University of Arterial blood by [facility] Pulse oximetry Branch Systolic blood 2019-11-05 17:17:00 139 mm[Hg] Univer sity of pressure [facility] Diastolic blood 2019-11-05 17:17:00 83 mm[Hg] Unive rsity of pressure [facility] Systolic blood 2019-11-03 21:00:00 108 mm[Hg] Univer sity of pressure [facility] Diastolic blood 2019-11-03 21:00:00 79 mm[Hg] Unive rsity of pressure [facility] Heart rate 2019-11-03 21:00:00 96 /min Universi ty [facility] Respiratory rate 2019-11-03 21:00:00 22 /min Univ ersity of [facility] Oxygen saturation in 2019-11-03 21:00:00 98 /min University of Arterial blood by [facility] Pulse oximetry Branch Body temperature 2019-11-03 20:32:00 37.11 Guillermina Univ ersity of [facility] [place] Body weight 2019-11-03 20:32:00 92.987 kg Universi ty [facility] BMI 2019-11-03 20:32:00 35.19 kg/m2 Universi ty [facility] Systolic blood 2019-03-25 22:00:00 102 mm[Hg] Christian sity of pressure [facility] Diastolic blood 2019-03-25 22:00:00 74 mm[Hg] Sanjaye rsity of pressure [facility] Heart rate 2019-03-25 22:00:00 72 /min [facility] Respiratory rate 2019-03-25 22:00:00 18 /min [facility] Oxygen saturation in 2019-03-25 22:00:00 98 /min [facility] Arterial blood by [facility] Pulse oximetry [place] Body temperature 2019-03-25 19:16:00 36.83 Guillermina [facility] Body height 2019-03-25 19:16:00 162.6 cm [facility] Body weight 2019-03-25 19:16:00 104.327 kg [facility] BMI 2019-03-25 19:16:00 39.48 kg/m2 [facility] Procedures Procedure Date / Time Performing Clinician Source Performed US ABDOMEN COMPLETE 2019-11-05 18:37:05 Crista Young [facility] POCT FLU A AND B 2019-11-05 17:35:00 Hector [facility] (MOLECULAR) [facility] LAB ONLY CORONAVIRUS 2019-11-05 17:20:00 Crista Young [facility] COVID-19 PCR [facility] XR CHEST 1 VW 2019-11-03 21:17:32 Pernell Flowers [facility] RAPID STREP SCREEN FOR 2019-11-03 21:00:00 [facility] GROUP A [facility] POCT TEST 2019-11-03 20:44:00 Pernell Flowers [facility] NOTICE OF PRIVACY 2019-11-03 20:18:17 Doctor Unassigned, No Univ [facility] PRACTICES Name Medical Branch CONSENT/REFUSAL FOR 2019-11-03 20:17:40 [facility]igned[facility] Medical Branch XR KUB 2019-03-25 21:33:17 Kelly Dobbins [facility] XR CHEST 2 VW 2019-03-25 21:29:23 Kelly Dobbins [facility] URINALYSIS 2019-03-25 21:03:00 Kelly Dobbins [facility] POCT TEST 2019-03-25 21:00:00 Kelly Dobbins [facility] NOTICE OF PRIVACY 2019-03-25 19:06:40 Doctor Unassigned, No Univ [facility] PRACTICES Name [facility] CONSENT/REFUSAL FOR 2019-03-25 19:06:29 Doctor Unassigned, No [facility] DIAGNOSIS AND TREATMENT Name [facility] Encounters Start End Encounter Admission Attending Care Care Encounter Source Date/Time Date/Time Type Type Clinicians Facility Department ID 2021-11-04 2021-11-04 Outpatient R RADIOLOGY [facility] [id number] Univers 00:00:00 00:00:00 ity of [facility] 2020-11-03 2020-11-03 [facility] [id number] Univers 00:00:00 00:00:00 Outreach Alek [facility] [id number] i ty of [facility] [id number] [id number] Id dical [address] [place] 2019-11-05 2019-11-07 Office Pob1, Acute Care Clinic [facility] [id number]. [id number] Univers 12:04:17 11:39:25 Visit Crista Young [id number] ity of [place] 4.2.7.2.686 [place] as Professio [id number] Id dicfl nal [address] [place] [address] 2019-11-05 2019-11-05 Outpatient R HECTOR [facility] [id number] Univers 13:16:38 23:59:00 CRISTA ity of [facility] 2019-11-05 2019-11-05 Hospital Hector [facility] [id number] Univers 13:16:00 23:59:00 Encounter Crista Cabezaston [id number] ity [place] [phone] [facility] [address] [place] 2019-11-03 2019-11-03 Telemedici Care, Provider 14 Adult & P samira Urgent [facility] [id number] Univers 14:58:07 19:12:59 ne Visit Stephany Walker [id number]. 10 ity of CARE [id number] [place] [facility] AT [phone] Id janina COE [address] [place] [address] 2019-11-03 2019-11-03 Emergency X LIONEL, [facility] ERT [id number] Univers 15:26:47 17:07:00 PERNELL lemusy of [facility] 2019-11-03 2019-11-03 Emergency Lionel, [facility] [id number] Univers 15:26:47 17:07:00 Pernell Turpin [id number] i ty of [place].2.[place] [id number] [address] 2019-11-03 2019-11-03 Orders Doctor OCONNOR [id number] Univers 00:00:00 00:00:00 Only Unassigned, MARIANGEL [id number] ity of [facility] 4.2.7.2.686 [place] as [phone] [address] 2019-03-25 2019-03-25 Emergency [facility] [id number] Univers 15:42:53 18:45:00 Kelly Turpin [id number] ity of [place] 4.2.7.2.[address] [facility] [id number] [address] 2019-03-25 2019-03-25 Orders Doctor OCONNOR [id number] Univers 00:00:00 00:00:00 Only Unassigned, MARIANGEL [id number] ity of [facility] 4.2.7.2.686 [place] as [phone] [address] Results Test Description Test Time Test Comments Results Result Comments Source LAB ONLY CORONAVIRUS COVID-19 PCR L 2019-11-07 00:49:00 Test Item Value Reference Range Interpretation Comme nts Coronavirus COVID-19 (test code = Positive Not Detected A [id number]) KARI (test code = KARI) Not Detected: A negative result does not preclude COVID-19 infection and should not be used as the sole basis for treatment or other patient management decisions. Negative results must be combined with clinical observations, patient history, and epidemiological information. Presumptive Positive: Specimen will be sent to [facility] for confirmation testing. Inconclusive: Specimen will be sent to [facility] for additional testing. Invalid: Please collect a new specimen for repeat patient testing. Disclaimer:This test was developed and its performance characteristics determined by [facility]. It has not been [...] testing. Lab Interpretation (test code = Abnormal 96401-2) [facility] [id number] 18:40:54HISTORY: Right lower quadrant Abdominal pain. TECHNIQUE: [...] these organs. Cortex of both kidneys range [id number] mm and 17 mm. No hydronephrosis, free [...] be obtained, especially ifappendicitis is suspected clinically. [facility], Radiant Results Inft User - 11/05/2019 1:41 [...] should be obtained, especially ifappendicitis is suspected clinically.[facility] FLU A AND B (MOLECULAR) 2019-11-05 17:35:00 Test Item Value Reference Range Interpretation Comments POCT INFLUENZA A (test code = Negative Negative - Negative 3840) POCT INFLUENZA B (test code = Negative Negative - Negative 3841) Lab Interpretation (test code = Normal 13183-8) [facility] FLU A AND B (MOLECULAR)2019-11-05 17:35:00 Test Item Value Reference Range Interpretation Comments POCT INFLUENZA A (test code = Negative Negative - Negative 3840) POCT INFLUENZA B (test code = Negative Negative - Negative 3841) Lab Interpretation (test code = Normal 58160-8) [facility] FLU A AND B (MOLECULAR)2019-11-05 17:35:00 Test Item Value Reference Range Interpretation Comments POCT INFLUENZA A (test code = Negative Negative - Negative 3840) POCT INFLUENZA B (test code = Negative Negative - Negative 3841) Lab Interpretation (test code = Normal 92529-0) [facility]P SCREEN FOR GROUP [id number] 21:33:00 Test Item Value Reference Range Interpretation Comments Streptococcus pyogenes (group A) Negative Negative antigen (test code = 03167-5) Lab Interpretation (test code = Normal 12141-7) [facility] CHEST 1 [id number] 21:31:34 No acute intrathoracic abnormality. Preliminary Report Dictated by Resident: Mohamed RamírezRidge Oneill MD., have reviewed this study and agree [...] reviewed this study and agree with the abovereport.[facility] [id number] 20:44:00 Test Item Value Reference Range Interpretation Comments POCT PREG (test code = 1605) negative On board controls acceptable with present C Line (test code = 3574) POCT PREG LOT # (test code = 3575) [id number] POCT PREG TEST DATE (test 04/13/2021 code = 3576) Lab Interpretation (test code = Normal 74845-5) [facility] [id number] 21:44:02FINDINGS/IMPRESSION: The bowel gas pattern is non-obstructive. Large amount of stool is seen inthe co ana. No abnormal calcifications or radiopaque stones are identified. No acute bony abnormalities arenoted. Cholecystectomy surgical clips are present in the right upper quadrant. Pavan, MD Maria Del Rosario., have reviewed this study and agree with [...] reviewed this study and agree with theabove report.[facility] CHEST 2 [id number] 21:30:31No acute cardiopulmonary disease. * * * * * * * * ORIGINAL REPORT * * * * * * * *CHEST 2 VIEWS: HISTORY:[Left Back pain TECHNIQUE::?PA and lateral views of the chest are obtained. FINDINGS: The lungs are clear. The heart size and mediastinal silhouetteare normal. No pleural effusion or pneumothorax isseen. Mild dextroscoliosis of the thoracic spine is seen. [facility], Radiant Results Inft User - 03/25/2019 4:32 [...] the thoracic spine is seen.IMPRESSIONNo acute cardiopulmonary disease.[facility]2019-08-12 21:29:00 Test Item Value Reference Range Interpretation Comments APPEARANCE (test code = Clear Clear 5589316059) COLOR (test code = Yellow Yellow 2055093617) PH (test code = 4.8-8.0 3354472894) SP GRAVITY (test code = 1.003-1.030 0045771497) GLU U QUAL (test code = Negative Negative 5590041113) BLOOD (test code = Negative Negative 6978969693) KETONES (test code = Negative Negative 9821883386) PROTEIN (test code = Negative Negative 2887-8) UROBILIN (test code = 0.2 mg/dL See_Comment [Auto mated message] 8106282545) The system [employer] generated this result transmit vish reference range : 0-1.0 mg/dL. e reference range was not used to interpret this result as normal/abnormal . BILIRUBIN (test code = Negative Negative 4907054684) NITRITE (test code = Negative Negative 1923668500) LEUK SUNDAR (test code = Negative Negative 1629393355) RBC/HPF (test code = See_Comment [Autom ated message] 5108849878) The system [employer] generated this result transmit vish reference range : 0 - 3 HPF. The refe rence range was not u sed to interpret th is result as normal/abnormal . WBC/HPF (test code = See_Comment [Autom ated message] 1970941847) The system [employer] generated this result transmit vish reference range : 0 - 5 HPF. The refe rence range was not u sed to interpret th is result as normal/abnormal . BACTERIA (test code = Negative Negative 2596074946) Lab Interpretation (test Normal code = 16262-7) [facility] [id number] 21:00:00 Test Item Value Reference Range Interpretation Comments POCT PREG (test code = 1605) Negative On board controls acceptable with Present C Line (test code = 3574) POCT PREG LOT # (test code = 3575) [id number] POCT PREG TEST DATE (test 08/13/2020 code = 3576) Lab Interpretation (test code = Normal 79831-0) [facility]
[2022-07-31 07:16] LABS: Urine Blood 1+ (Negative); Urine Glucose Negative (Negative); Urine Protein Negative (Negative); Urine Specific Gravity >=1.030 (1.005-1.030)
[2022-07-31] MEDS ORDERED: IBUPROFEN 200 MG TAB PO ONE (07:28)
[2022-07-31] MEDS ORDERED: IBUPROFEN 400 MG TAB ONE (07:28)
[2022-07-31] MEDS ORDERED: HYDROCODONE/APAP 10/325 TAB ONE (07:34)
--- NOTE | 2022-07-31 08:07 | EDPHYS ---
Physician Documentation [facility] Name: Geena Landin Age: 31 yrs Sex: Female : 1990 Arrival Date: 07/31/2022 Time: 06:31 Bed 8 Private MD: ED Physician Nicole Minor HPI: 07/31 07:27 This 31 yrs old Female presents to ER via Wheelchair with complaints of Ankle pawan Injury. 07:27 The patient presents with decreased range of motion, pain, that is acute. The pawan complaints affect the right ankle, right ankle and anterior aspect of right ankle. Onset: The symptoms/episode began/occurred 1 day(s) ago. Context: resulted from a mis-step by the patient. Associated signs and symptoms: Pertinent positives: swelling. Modifying factors: The symptoms are alleviated by elevation of extremity, ice packs, the symptoms are aggravated by weight bearing. Severity of symptoms: At their worst the symptoms were moderate, in the emergency department the symptoms are unchanged. The patient has not experienced similar symptoms in the past. 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 - Social history:: Smoking status: Patient denies any tobacco usage or history of. - Family history:: not pertinent. ROS: 07:27 Constitutional: Negative for fever, chills, and weight loss, Eyes: Negative for injury, pawan pain, redness, and discharge, ENT: Negative for injury, pain, and discharge, Neck: Negative for injury, pain, and swelling, Cardiovascular: Negative for chest pain, palpitations, and edema, Respiratory: Negative for shortness of breath, cough, wheezing, and pleuritic chest pain, Abdomen/GI: Negative for abdominal pain, nausea, vomiting, diarrhea, and constipation, Back: Negative for injury and pain, : Negative for injury, bleeding, discharge, and swelling, Skin: Negative for injury, rash, and discoloration, Neuro: Negative for headache, weakness, numbness, tingling, and seizure, Psych: Negative for depression, anxiety, suicide ideation, homicidal ideation, and hallucinations, Allergy/Immunology: Negative for hives, rash, and allergies, Endocrine: Negative for neck swelling, polydipsia, polyuria, polyphagia, and marked weight changes, Hematologic/Lymphatic: Negative for swollen nodes, abnormal bleeding, and unusual bruising. 07:27 MS/extremity: Positive for decreased range of motion, pain, swelling, tenderness, of the right ankle and anterior aspect of right ankle. Exam: 07:27 Constitutional: This is a well developed, well nourished patient who is awake, alert, pawan and in no acute distress. Head/Face: Normocephalic, atraumatic. Eyes: Pupils equal round and reactive to light, extra-ocular motions intact. Lids and lashes normal. Conjunctiva and sclera are non-icteric and not injected. Cornea within normal limits. Periorbital areas with no swelling, redness, or edema. ENT: Nares patent. No nasal discharge, no septal abnormalities noted. Tympanic membranes are normal and external auditory canals are clear. Oropharynx with no redness, swelling, or masses, exudates, or evidence of obstruction, uvula midline. Mucous membranes moist. Neck: Trachea midline, no thyromegaly or masses palpated, and no cervical lymphadenopathy. Supple, full range of motion without nuchal rigidity, or vertebral point tenderness. No Meningismus. Chest/axilla: Normal chest wall appearance and motion. Nontender with no deformity. No lesions are appreciated. Cardiovascular: Regular rate and rhythm with a normal S1 and S2. No gallops, murmurs, or rubs. Normal PMI, no JVD. No pulse deficits. Respiratory: Lungs have equal breath sounds bilaterally, clear to auscultation and percussion. No rales, rhonchi or wheezes noted. No increased work of breathing, no retractions or nasal flaring. Abdomen/GI: Soft, non-tender, with normal bowel sounds. No distension or tympany. No guarding or rebound. No evidence of tenderness throughout. Back: No spinal tenderness. No costovertebral tenderness. Full range of motion. Skin: Warm, dry with normal turgor. Normal color with no rashes, no lesions, and no evidence of cellulitis. Neuro: Awake and alert, GCS 15, oriented to person, place, time, and situation. Cranial nerves II-XII grossly intact. Motor strength 5/5 in all extremities. Sensory grossly intact. Cerebellar exam normal. Normal gait. Psych: Awake, alert, with orientation to person, place and time. Behavior, mood, and affect are within normal limits. 07:27 Musculoskeletal/extremity: ROM: limited active range of motion, limited passive range of motion, in the right ankle and anterior aspect of right ankle, Circulation is intact in all extremities. Sensation intact. Compartment Syndrome exam of affected extremity: is normal. Weight bearing: can bear weight with assistance only, uses crutches. Vital Signs: 06:50 BP 115 / 65; Pulse 92; Resp 18; Temp 98.3; Pulse Ox 99% ; Weight 99.79 kg; Height 5 ft. vc1 4 in. (162.56 cm); Pain 10/10; 08:37 BP 108 / 78; Pulse 81; Resp 18; Temp 97.9; Pulse Ox 99% on R/A; ph 06:50 Body Mass Index 37.76 (99.79 kg, 162.56 cm) vc1 MDM: 06:44 Patient medically screened. [facility] 07:31 Differential diagnosis: fracture, sprain, arthritis, gout. Data reviewed: vital signs, [facility] nurses notes, radiologic studies, ultrasound. Data interpreted: compliance monitor: not applicable for this patient encounter. rate is 92 beats/min, rhythm is regular, Pulse oximetry: on room air is 99 %. Test interpretation: by ED physician or midlevel provider: plain radiologic studies. Counseling: I had a detailed discussion with the patient and/or guardian regarding: the historical points, exam findings, and any diagnostic results supporting the discharge/admit diagnosis, lab results, radiology results, the need for outpatient follow up, for definitive care, a family practitioner, a orthopedic surgeon. 08:04 ED course: X-ray reviewed and demonstrates no fracture or other abnormality. We will sp3 discharge patient home with general precautions and OTC pain medications.. 07/31 07:16 Order name: Urine Dipstick-Ancillary; Complete Time: 07:24 EDAZ 07/31 06:48 Order name: Ankle Right 3 View XRAY [facility] 07/31 06:48 Order name: Ice pack; Complete Time: 07:01 [facility] 07/31 06:48 Order name: Urine Dipstick-Ancillary (obtain specimen); Complete Time: 07:18 [facility] 07/31 06:48 Order name: Urine Test (obtain specimen); Complete Time: 07:18 [facility] 07/31 07:27 Order name: Walking boot; Complete Time: 08:36 [facility] Administered Medications: 07:36 Drug: Motrin (ibuprofen) 600 mg Route: PO; ph 08:36 Follow up: Response: No adverse reaction ph 07:36 Drug: Thida (HYDROcodone-acetaminophen) 10 mg-325 mg 1 tabs Route: PO; ph 08:36 Follow up: Response: No adverse reaction ph Disposition Summary: 07/31/22 08:07 Discharge Ordered Location: Home sp3 Problem: new sp3 Symptoms: have improved sp3 Condition: Stable sp3 Diagnosis - Sprain of other ligament of right ankle sp3 - Sprain of deltoid ligament of right ankle sp3 Followup: pawan - With: Private Physician - When: 2 - 3 days - Reason: Recheck today's complaints, Continuance of care, Re-evaluation by your physician Followup: [facility] - With: - When: 2 - 3 days - Reason: Recheck today's complaints, Re-evaluation by your physician Discharge Instructions: - Discharge Summary Sheet pawan - Ankle Sprain pawan - Ankle Sprain, [id number] [facility] Forms: - Work release form ph - Medication Reconciliation Form sp3 - Thank You Letter sp3 - Antibiotic Education sp3 - Prescription Opioid Use sp3 Prescriptions: - Diclofenac Sodium 75 mg Oral tablet,delayed release (DR/EC) - take 1 tablet by ORAL route 2 times per day; 20 tablet; Refills: 0, Product [facility] Selection Permitted - Tylenol-Codeine #3 300 mg-30 mg Oral - take 2 tablet by ORAL route every 6 hours; 20 tablet; Refills: 0, Product [facility] Selection Permitted Signatures: Dispatcher [employer] Phoenix Franks MD MD cha Hall, Patricia, RN RN Nicole Flores MD MD sp3 Norma Cornejo RN RN vc1
--- NOTE | 2022-07-31 08:07 | ER ---
Nurse's Notes [facility] Name: Geena Landin Age: 31 yrs Sex: Female : 1990 Arrival Date: 07/31/2022 Time: 06:31 Bed 8 Private MD: Diagnosis: Sprain of other ligament of right ankle;Sprain of deltoid ligament of right ankle Presentation: 07/31 06:50 Chief complaint: Patient states: "My dog took off running and ran into me full speed vc1 and my ankle turned inwards.". Coronavirus screen: Vaccine status: Patient reports being unvaccinated. At this time, the client does not indicate any symptoms associated with coronavirus-19. Ebola Screen: No symptoms or risks identified at this time. Initial Sepsis Screen: Does the patient meet any 2 criteria? HR > 90 bpm. No. Patient's initial sepsis screen is negative. Does the patient have a suspected source of infection? No. Patient's initial sepsis screen is negative. Risk Assessment: Do you want to hurt yourself or someone else? Patient reports no desire to harm self or others. Onset of symptoms was July 31, 2022. 06:50 Method Of Arrival: Wheelchair vc1 06:50 Acuity: KWESI 4 vc1 Triage Assessment: 06:53 General: Appears uncomfortable, obese, Behavior is cooperative, crying. Pain: Complains vc1 of pain in dorsum of right foot Pain does not radiate. Pain currently is 10 out of 10 on a pain scale. Quality of pain is described as sharp, throbbing, Pain began. EENT: No deficits noted. No signs and/or symptoms were reported regarding the EENT system. Neuro: Level of Consciousness is awake, alert, obeys commands, Oriented to person, place, time, situation, Appropriate for age. Cardiovascular: No deficits noted. Respiratory: Airway is patent Respiratory effort is even, unlabored, Respiratory pattern is regular, symmetrical. GI: No deficits noted. : No deficits noted. Derm: No deficits noted. Musculoskeletal: Range of motion: limited in left ankle Swelling present in left foot. 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 - Social history:: Smoking status: Patient denies any tobacco usage or history of. - Family history:: not pertinent. Screenin:55 Abuse screen: Denies threats or abuse. Nutritional screening: No deficits noted. vc1 Tuberculosis screening: No symptoms or risk factors identified. Fall Risk No fall in past 12 months (0 pts). 06:57 [facility] ED Fall Risk Assessment (Adult) History of falling in the last 3 months, vc1 including since admission No falls in past 3 months (0 pts) Confusion or Disorientation No (0 pts) Intoxicated or Sedated No (0 pts) Impaired Gait No (0 pts) Mobility Assist Device Used No (0 pt) Altered Elimination No (0 pt) Score/Fall Risk Level 0 - 2 = Low Risk Oriented to surroundings, Maintained a safe environment. Assessment: 07:30 General: Appears in no apparent distress. Behavior is calm, cooperative. Pain: ph Complains of pain in right ankle. Neuro: Level of Consciousness is awake, alert, obeys commands, Oriented to person, place, time, situation. Derm: Skin is healthy with good turgor, Skin is pink, warm \\T\\ dry. Musculoskeletal: Swelling present in right ankle Reports pain in right ankle. Vital Signs: 06:50 BP 115 / 65; Pulse 92; Resp 18; Temp 98.3; Pulse Ox 99% ; Weight 99.79 kg; Height 5 ft. vc1 4 in. (162.56 cm); Pain 10/10; 08:37 BP 108 / 78; Pulse 81; Resp 18; Temp 97.9; Pulse Ox 99% on R/A; ph 06:50 Body Mass Index 37.76 (99.79 kg, 162.56 cm) vc1 ED Course: 06:31 Patient arrived in ED. ja2 06:44 Phoenix Aviles MD is Attending Physician. pawan 06:52 Triage completed. vc1 06:56 Patient has correct armband on for positive identification. Pulse ox on. NIBP on. vc1 07:18 Rosario Suarez, RN is Primary Nurse. ph 07:59 Attending Physician role handed off by Phoenix Aviles MD sp3 07:59 Nicole Minor MD is Attending Physician. sp3 08:02 Ankle Right 3 View XRAY In Process Unspecified. EDMS 08:07 John Deluna MD is Referral Physician. sp3 08:37 No provider procedures requiring assistance completed. Patient did not have IV access ph during this emergency room visit. 3D boot applied to right foot. 08:38 Arm band placed on. ph Administered Medications: 07:36 Drug: Motrin (ibuprofen) 600 mg Route: PO; ph 08:36 Follow up: Response: No adverse reaction ph 07:36 Drug: Rule (HYDROcodone-acetaminophen) 10 mg-325 mg 1 tabs Route: PO; ph 08:36 Follow up: Response: No adverse reaction ph Medication: 06:55 VIS not applicable for this client. vc1 Outcome: 08:07 Discharge ordered by . sp3 08:38 Discharged to home via wheelchair, with family. ph 08:38 Condition: good 08:38 Discharge instructions given to patient, Instructed on discharge instructions, follow up and referral plans. medication usage, Demonstrated understanding of instructions, follow-up care, medications, Prescriptions given X 2. 08:38 Patient left the ED. ph Signatures: Dispatcher [employer] EDMS Phoenix Aviles MD MD cha Hall, Patricia, RN RN ph Nicole Minor MD MD sp3 Alexander, Jessica ja2 Calcote, Vanessa, RN RN vc1
--- NOTE | 2022-07-31 08:17 | RAD REPORT ---
EXAM DESCRIPTION: RAD - Ankle Right 3 View - 07/31/2022 8:00 am CLINICAL HISTORY: PAIN, blunt force trauma to the ankle COMPARISON: No comparisons FINDINGS: No fracture, dislocation or periosteal reaction. No joint effusion seen. No joint space na rrowing. No soft tissue abnormality. IMPRESSION: Negative right ankle
[2022-07-31 08:43] VITALS: O2SAT 99
[2022-07-31 08:45] VITALS: BP 108/78; TEMP 97.9
== END 2022-07-31 08:38 | disposition home or self-care (01) ==
LOC: ER 06:24
DX: S93.421A Sprain of deltoid ligament of right ankle, initial encounter (principal); S93.491A Sprain of other ligament of right ankle, initial encounter
CPT/HCPCS: 81003; 99284

== ENCOUNTER 2024-05-20 15:47 | Emergency (ER) | payer BC, SELFPAY ==
--- NOTE | 2024-05-20 16:26 | ER ---
Nurse's Notes [facility] Name: Geena Landin Age: 33 yrs Sex: Female : 1990 Arrival Date: 05/20/2024 Time: 15:47 Bed IW4 Private MD: Diagnosis: Cutaneous abscess of chest wall Presentation: 05/20 16:16 Chief complaint: Patient states: Insect bite to upper chest. Pt states that she noticed cm10 it on and it has been getting worse. Coronavirus screen: Client denies travel out of the [place] in the last 14 days. Ebola Screen: Patient denies travel to an Ebola-affected area in the 21 days before illness onset. No symptoms or risks identified at this time. Initial Sepsis Screen: Does the patient meet any 2 criteria? No. Patient's initial sepsis screen is negative. Does the patient have a suspected source of infection? No. Patient's initial sepsis screen is negative. Risk Assessment: Do you want to hurt yourself or someone else? Patient reports no desire to harm self or others. Onset of symptoms was May 20, 2024. 16:16 Method Of Arrival: Ambulatory cm10 16:16 Acuity: KWESI 4 cm10 Triage Assessment: 16:18 Bite description: bite sustained to anterior aspect of right upper chest. Bite cm10 description: by an unknown animal, animal information: vaccination(s) is not applicable. General: Appears in no apparent distress. comfortable, Behavior is calm, cooperative. Neuro: No deficits noted. Level of Consciousness is awake, alert, obeys commands, Oriented to person, place, time, situation, Appropriate for age. Respiratory: No deficits noted. Airway is patent Respiratory effort is even, unlabored, Respiratory pattern is regular, symmetrical. 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 - Infectious Disease History:: Denies. - Social history:: Smoking status: Patient denies any tobacco usage or history of. Screenin:21 [facility] ED Fall Risk Assessment (Adult) History of falling in the last 3 months, cm10 including since admission No falls in past 3 months (0 pts) Confusion or Disorientation No (0 pts) Intoxicated or Sedated No (0 pts) Impaired Gait No (0 pts) Mobility Assist Device Used No (0 pt) Altered Elimination No (0 pt) Score/Fall Risk Level 0 - 2 = Low Risk Oriented to surroundings, Maintained a safe environment, Hourly rounding (assess needs \T\ fall precautionary measures) done. Abuse screen: Denies threats or abuse. Denies injuries from another. Nutritional screening: No deficits noted. Tuberculosis screening: No symptoms or risk factors identified. Assessment: 16:24 Pain: Complains of pain in anterior aspect of right upper chest Pain does not radiate. cm10 Pain currently is 7 out of 10 on a pain scale. Derm: Skin is healthy with good turgor, Skin is pink, warm \T\ dry. Insect bite to right upper chest. Vital Signs: 16:16 BP 105 / 83; Pulse 86; Resp 16; Temp 98.3; Pulse Ox 96% on R/A; Weight 113.4 kg; Height cm10 5 ft. 4 in. ; Pain 7/10; 16:16 Body Mass Index 42.91 (113.40 kg, 162.56 cm) cm10 16:16 Pain Scale: Adult cm10 ED Course: 15:50 Patient arrived in ED. ra3 15:50 Prema Crooks PA-C is PHCP. sb4 15:50 Nicole Minor MD is Attending Physician. sb4 16:18 Triage completed. cm10 16:19 Arm band placed on right wrist. Patient placed in waiting room. cm10 16:21 Patient has correct armband on for positive identification. Provided Education on: ER cm10 process and procedures. Cardiac monitoring not applicable on this patient. 16:24 No provider procedures requiring assistance completed. Patient did not have IV access cm10 during this emergency room visit. Administered Medications: No medications were administered Medication: 16:21 VIS not applicable for this client. cm10 Outcome: 16:24 Discharged to home ambulatory, cm10 16:24 Condition: good 16:24 Discharge instructions given to patient, Instructed on discharge instructions, follow up and referral plans. medication usage, wound care, Demonstrated understanding of instructions, follow-up care, medications, wound care, Prescriptions given X 1, 16:25 Discharge ordered by MD. sb4 16:28 Patient left the ED. cm10 Signatures: Prema Crooks PA-C PA-C sb4 Soila Pickett RN RN cm10 Philomena Ibarra ra3 Corrections: (The following items were deleted from the chart) 16:22 16:16 Pulse 86bpm; Resp 16bpm; Pulse Ox 96% RA; Temp 98.3F; 113.4 kg; Height 5 ft. 4 cm10 in.; BMI: 42.9; Pain 7/10, Adult; cm10
--- NOTE | 2024-05-20 16:26 | EDPHYS ---
Physician Documentation [facility] Name: Geena Landin Age: 33 yrs Sex: Female : 1990 Arrival Date: 05/20/2024 Time: 15:47 Bed IW4 Private MD: ED Physician Nicole Minor HPI: 05/20 16:26 This 33 yrs old Female presents to ER via Ambulatory with complaints of Insect sb4 Bite - upper chest area. 16:26 the patient presents with a swollen area of the anterior aspect of right upper chest. sb4 Description: The affected area is small, erythematous, raised, swollen, tense, warm. Onset: The symptoms/episode began/occurred 2 day(s) ago. Possible cause(s): insect bite. Associated signs and symptoms: Pertinent negatives: discharge, drainage, fever. The patient has experienced a previous episode, but today's symptoms are not as bad as this previous episode. The patient has not recently seen a physician. 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 - Infectious Disease History:: Denies. - Social history:: Smoking status: Patient denies any tobacco usage or history of. ROS: 16:26 Constitutional: Negative for fever, chills, and weight loss, sb4 16:26 Skin: Positive for abscess, of the anterior aspect of right upper chest, 16:26 All other systems are negative, Exam: 16:26 Constitutional: This is a well developed, well nourished patient who is awake, alert, sb4 and in no acute distress. Head/Face: Normocephalic, atraumatic. Eyes: Extra-ocular motions intact. Periorbital areas with no swelling, redness, or edema. ENT: Mucous membranes moist. 16:26 Skin: abscess, that is small, of the anterior aspect of right upper chest, with induration, with surrounding cellulitis, Vital Signs: 16:16 BP 105 / 83; Pulse 86; Resp 16; Temp 98.3; Pulse Ox 96% on R/A; Weight 113.4 kg; Height cm10 5 ft. 4 in. ; Pain 710; 16:16 Body Mass Index 42.91 (113.40 kg, 162.56 cm) cm10 16:16 Pain Scale: Adult cm10 MDM: 16:00 Patient medically screened. sb4 16:27 Data reviewed: vital signs, nurses notes, and as a result, I will discharge patient. sb4 Counseling: I had a detailed discussion with the patient and/or guardian regarding the historical points, exam findings, and any diagnostic results supporting the discharge/admit diagnosis, to return to the emergency department if symptoms worsen or persist or if there are any questions or concerns that arise at home. Administered Medications: No medications were administered Disposition Summary: 05/20/24 16:25 Discharge Ordered Notes: Location: Home sb4 Problem: new sb4 Symptoms: are unchanged sb4 Condition: Stable sb4 Diagnosis - Cutaneous abscess of chest wall sb4 Followup: sb4 - With: Emergency Department - When: As needed - Reason: Fever > 102 F, Worsening of condition Discharge Instructions: - Discharge Summary Sheet sb4 - Skin Abscess, [id number] sb4 Forms: - Antibiotic Education sb4 - Patient Portal Instructions sb4 - Leadership Thank You Letter sb4 Prescriptions: - Bactrim DS 800-160 mg Oral Tablet - take 1 tablet ORAL route every 12 hours for 10 days; 20 tablet; Refills: 0, sb4 Product Selection Permitted Signatures: Prema Crooks PA-C PA-C sb4 Soila Pickett, RN RN cm10
[2024-05-20 17:08] VITALS: BP 105/83; TEMP 98.3; O2SAT 96
== END 2024-05-20 16:28 | disposition home or self-care (01) ==
LOC: ER 15:47
DX: L02.213 Cutaneous abscess of chest wall (principal); L03.313 Cellulitis of chest wall
CPT/HCPCS: 99283